=== PATIENT | male | born 1950 | race Caucasian/White ===

== ENCOUNTER → 2018-03-13 | Outpatient (CLI) | payer MEDICARE ==
[~2018-03-13] MED LIST: IOPAMIDOL 370 MG/ML 200 ML INFUS..BTL INJ ONE; SODIUM CHLORIDE 0.9% 50ML 50 ML ONE
[2018-03-13 11:02] LABS: BLOOD UREA NITROGEN 19 mg/dL (7-26); BUN/CREATININE RATIO 17 (6-25); CREATININE, SERUM 1.11 mg/dL (0.72-1.25); EST GLOMERULAR FILTRATION RATE > 60 ML/MIN (60-)
--- NOTE | 2018-03-13 11:41 | Diagnostic Imaging Report ---
EXAM: Complete Abdominal Ultrasound INDICATION: \S\THORACIC AORTIC ANEURYSM COMPARISON: None. TECHNIQUE: Transverse and longitudinal images of the upper abdomen were obtained. FINDINGS: Liver: Size: 17.8 cm in the right midclavicular line, prominent Appearance: Increased echogenicity, smooth contour Mass: No focal masses Spleen: Size: 10.7 cm in length, normal Echogenicity: Normal Mass: No focal masses Gallbladder: Stones/Sludge: None Wall: 0.3 cm Appearance: No wall thickening, pericholecystic fluid or hydrops. Sonographic Sultana's Sign: Negative Bile Ducts: Intrahepatic Ducts: No dilatation Extrahepatic Ducts: Common bile duct measures 0.5 cm, no dilatation Pancreas: Visualized portions of the pancreatic head, neck and proximal body are normal. Kidneys: Length: Right 10.7 cm Left 10.6 cm Echogenicity: Normal Collecting System: No hydronephrosis Stone: None Cyst/Mass: 2.2 x 2.2 x 2.1 cm simple appearing left renal cyst Vessels: Aorta: Visualized portions are normal. Proximal abdominal aorta diameter 2.3 cm. Mid abdominal aorta diameter 2.3 cm. Distal abdominal aorta diameter 1.7 cm. Inferior Vena Cava: Visualized portions are normal Main Portal Vein: 0.9 cm, normal size with hepatopetal flow. Free Fluid: No ascites or pleural effusion IMPRESSION: Prominent liver size with increased echogenicity which could be due to fatty infiltration. No abdominal aortic aneurysm is seen. 2.2 cm simple appearing left renal cyst. Signed by: Dr. Rick Marshall M.D. on 03/13/2018 11:38 AM
--- NOTE | 2018-03-13 13:09 | Diagnostic Imaging Report ---
EXAM: CTA Chest WITH contrast 03/13/2018 11:45 AM INDICATION: Thoracic aortic aneurysm. Occasional exertional dyspnea. Mildly dilated aortic root 4.3 cm from recent echocardiogram. COMPARISON: None TECHNIQUE: Chest was scanned utilizing a multidetector helical scanner from the lung apex through the level of the adrenal glands without administration of IV contrast. Coronal and sagittal reformations were obtained. CTA protocol was performed. Three-D reformatted images were obtained of the thoracic aorta. IV CONTRAST: 100 mL of Isovue-[id number] RADIATION DOSE: Total DLP: 512.05 mGy*cm Estimated effective dose: (DLP x 0.014 x size factor) mSv COMPLICATIONS: None FINDINGS: LINES/ TUBES: None. LUNGS AND AIRWAYS: There are mild chronic appearing changes in the lungs with mild emphysematous change in the upper lobes. Airways are normal. No consolidated pneumonia. PLEURA: No pleural effusion or pneumothorax. HEART AND MEDIASTINUM: The thyroid gland is normal. No mediastinal, hilar or axillary lymphadenopathy. The heart is normal in size. There is no pericardial effusion. Mildly dilated aortic root measuring 4.3 cm. Mildly dilated ascending thoracic aorta measuring 4.0 cm. The aortic arch diameter is 3.2 cm. The descending thoracic aorta diameter is 3.0 cm. Aortic diameter at the diaphragm is 2.5 cm. No aortic dissection is seen. UPPER ABDOMEN: Small hiatal hernia. Small posterior right fat containing diaphragmatic hernia. BONES: The visualized bony thorax is within normal limits. SOFT TISSUES: Unremarkable. IMPRESSION: Mildly dilated aortic root measuring 4.3 cm. Mildly dilated ascending thoracic aorta measuring 4.0 cm. The aortic arch diameter is 3.2 cm. The descending thoracic aorta diameter is 3.0 cm. Aortic diameter at the diaphragm is 2.5 cm. Signed by: Dr. Rick Marshall M.D. on 03/13/2018 1:06 PM
== END ==
LOC: US 09:34
PROVIDERS: ATTEND Internal Medicine Cardiovascular Disease
DX: I71.2 Thoracic aortic aneurysm, without rupture (principal)
CPT/HCPCS: 36415; 71275; 76700; 82565; 84520; Q9967